=== PATIENT | female | born 1955 | race African-American/Black ===

== ENCOUNTER 2018-05-03 07:45 | Outpatient (CLI) | payer OTHER | END 2018-05-03 08:05 | disposition home or self-care (01) | LOC: LAB 07:45 | DX: I10 Essential (primary) hypertension (principal); E11.9 Type 2 diabetes mellitus without complications; E03.8 Other specified hypothyroidism; E78.2 Mixed hyperlipidemia; K92.1 Melena; D64.0 Hereditary sideroblastic anemia ==

== ENCOUNTER 2018-07-11 08:35 | Outpatient (CLI) | payer OTHER | END 2018-07-11 08:44 | disposition home or self-care (01) | LOC: RAD 08:35 | DX: M48.47XA Fatigue fracture of vertebra, lumbosacral region, initial encounter for fracture (principal); M19.90 Unspecified osteoarthritis, unspecified site; J44.9 Chronic obstructive pulmonary disease, unspecified ==

== ENCOUNTER 2018-08-09 06:21 | Outpatient (CLI) | payer OTHER | END 2018-08-09 06:28 | disposition home or self-care (01) | LOC: LAB 06:21 | DX: E11.9 Type 2 diabetes mellitus without complications (principal); E03.8 Other specified hypothyroidism; I10 Essential (primary) hypertension; E78.2 Mixed hyperlipidemia ==